=== PATIENT | male | born 1950 | race Caucasian/White ===

== ENCOUNTER → 2020-03-23 | Outpatient (CLI) | payer OTHER ==
[~2020-03-23] MED LIST: COZAAR 25 MG TA25 M1 PO; FLOMAX0.4 MG PO; GLUCOTROL5 MG PO; INVOKANA300 MG PO; METFORMIN HCL500 MG PO; OMEPRAZOLE 20 M20 M1 PO
== END ==
LOC: SJCVC 11:12
PROVIDERS: ATTEND Internal Medicine
DX: R94.31 Abnormal electrocardiogram [ECG] [EKG] (principal); R00.0 Tachycardia, unspecified; I44.4 Left anterior fascicular block; R00.2 Palpitations; R07.2 Precordial pain; I10 Essential (primary) hypertension; E11.9 Type 2 diabetes mellitus without complications; E78.5 Hyperlipidemia, unspecified; Z87.891 Personal history of nicotine dependence; Z72.89 Other problems related to lifestyle; Z79.899 Other long term (current) drug therapy; Z79.84 Long term (current) use of oral hypoglycemic drugs

== ENCOUNTER → 2020-04-08 | Outpatient (CLI) | payer OTHER | LOC: SJCVCIMAG 09:33 | PROVIDERS: ATTEND Internal Medicine | DX: R00.0 Tachycardia, unspecified (principal); I10 Essential (primary) hypertension; E78.5 Hyperlipidemia, unspecified; E11.9 Type 2 diabetes mellitus without complications; Z79.899 Other long term (current) drug therapy; Z87.891 Personal history of nicotine dependence ==